=== PATIENT | female | born 1960 | race Two or more races ===

== ENCOUNTER 2016-04-03 01:06 | Emergency (ER) | payer OTHER ==
[2016-04-03] MEDS ORDERED: ACETAMINOPHEN 325 MG TABLET ONE (03:16)
--- NOTE | 2016-04-03 09:01 | RAD ---
Exam: Two-view chest COMPARISON: 11/01/2015 INDICATION: Cough and fever. FINDINGS: PA and lateral views of the chest were obtained. Cardiac silhouette is within normal limits. Lungs are well-inflated. There is no focal airspace disease or pleural effusion. Bones of the chest wall within normal limits. IMPRESSION: Negative two-view chest.
== END 2016-04-03 03:36 | disposition home or self-care (01) ==
LOC: ED 01:06
DX: J06.9 Acute upper respiratory infection, unspecified (principal); R05 Cough